=== PATIENT | male | born 1990 | race Caucasian/White ===

== ENCOUNTER 2019-12-10 09:32 | Emergency (ER) | payer BC, OTHER ==
[~2019-12-10] VITALS: Ht 172.7 cm; Wt 68.9 kg
[2019-12-10] MEDS ORDERED: ASPirin 81 mg TAB PO ONE (09:45)
[2019-12-10] MEDS ORDERED: SODIUM CHLORIDE 0.9% 1,000 ML IV ONE ×2 (09:50)
[2019-12-10 10:20] LABS: Basophils # (auto) 0 uL; Basophils % (auto) 0.2 % (0.0-2.0); Eosinophils # (auto) 0 uL; Hematocrit 48.5 % (41.0-53.0); Hemoglobin 16.9 g/dL (13.5-17.5); Lymphocytes # (auto) 0.5 uL; Lymphocytes % (auto) 8.6 % (10.0-50.0); Mean Corpuscular Hemoglobin 32.5 pg (28.0-32.0); Mean Corpuscular Hgb Conc. 34.9 g/dL (32.0-36.0); Monocytes # (auto) 0.6 uL; Monocytes % (auto) 9.2 % (0.0-12.0); Neutrophils # (auto) 5.1 uL; Nucleated Red Blood Cells % 0.1 %; Platelet Count (auto) 141 10^3/uL (140-450); Red Blood Cells 5.22 10^6/uL (4.5-5.90); White Blood Cell 6.2 10^3/uL (4.4-10.8)
[2019-12-10 10:44] LABS: Albumin 3.4 g/dL (3.4-5.0); Anion Gap 7 (5-15); Blood Urea Nitrogen 8 mg/dL (7-18); Calcium 8.6 mg/dL (8.5-10.1); Carbon Dioxide 23 mmol/L (21-32); Chloride 98 mmol/L (98-107); Glucose 105 mg/dL (74-106); Potassium 3.8 mmol/L (3.5-5.1); Sodium 128 mmol/L (136-145)
[2019-12-10 10:52] LABS: Alanine Aminotransferase 43 U/L (16-61); Alkaline Phosphatase 59 U/L (45-117); Aspartate Aminotransferase 55 U/L (15-37); BUN/Creatinine Ratio 8.5; Bilirubin, Total 0.4 mg/dL (0.2-1.0); GFR African American 123 mL/min; GFR Non-African American 102 mL/min; Total Protein 7.2 g/dL (6.4-8.2)
[2019-12-10 11:44] VITALS: BP 132/77
[2019-12-10 12:58] LABS: Urine Bacteria NONE SEEN /hpf (None Seen); Urine Blood Negative /uL (Negative); Urine Specific Gravity 1.006 (1.001-1.035); Urine WBC 1 /hpf (0 - 3)
== END 2019-12-10 12:58 | disposition home or self-care (01) ==
LOC: ER 09:32
DX: R07.89 Other chest pain (principal); J06.9 Acute upper respiratory infection, unspecified; E86.0 Dehydration; F17.210 Nicotine dependence, cigarettes, uncomplicated
CPT/HCPCS: 36415; 71045; 80053; 81001; 84484; 85025; 93005; 96360; 96361; 99285; J7030

== ENCOUNTER 2022-01-23 09:48 | Emergency (ER) | payer BC, MEDICAID ==
[~2022-01-23] VITALS: Ht 175.3 cm; Wt 75.3 kg
[2022-01-23 10:15] VITALS: BP 137/92
[2022-01-23 10:51] LABS: Basophils # (auto) 0.1 10 ^3/uL (0-0.2); Basophils % (auto) 1.1 % (0.0-2.0); Eosinophils # (auto) 0.1 10 ^3/uL (0-0.8); Eosinophils % (auto) 1.2 % (0.0-7.0); Hematocrit 48.3 % (41.0-53.0); Hemoglobin 16.8 g/dL (13.5-17.5); Lymphocytes # (auto) 1.2 10 ^3/uL (0.4-5.4); Mean Corpuscular Hemoglobin 33.2 pg (28.0-32.0); Mean Corpuscular Hgb Conc. 34.7 g/dL (32.0-36.0); Mean Corpuscular Volume 95.7 fL (80.0-100.0); Monocytes # (auto) 0.7 10 ^3/uL (0-1.3); Monocytes % (auto) 8.2 % (0.0-12.0); Neutrophils # (auto) 6.5 10 ^3/uL (1.6-8.6); Neutrophils % (auto) 75.5 % (37.0-80.0); Nucleated Red Blood Cells % 0.1 %; Red Blood Cells 5.05 10^6/uL (4.5-5.90); Red Cell Distribution Width 13.8 % (11.8-14.3); White Blood Cell 8.6 10^3/uL (4.4-10.8)
[2022-01-23 11:17] LABS: Anion Gap 5 (5-15); Blood Urea Nitrogen 7 mg/dL (7-18); Calcium 9.4 mg/dL (8.5-10.1); Carbon Dioxide 27 mmol/L (21-32); Chloride 105 mmol/L (98-107); Glucose 107 mg/dL (74-106); Potassium 4.4 mmol/L (3.5-5.1); Sodium 137 mmol/L (136-145)
[2022-01-23 11:24] LABS: Alanine Aminotransferase 108 U/L (16-61); Alkaline Phosphatase 66 U/L (45-117); Aspartate Aminotransferase 63 U/L (15-37); BUN/Creatinine Ratio 7.2; Bilirubin, Total 0.6 mg/dL (0.2-1.0); GFR African American 117 mL/min; GFR Non-African American 97 mL/min; Total Protein 7.9 g/dL (6.4-8.2)
[2022-01-23] MEDS ORDERED: PERCOT PO (17:14)
[2022-01-23] MEDS ORDERED: IBUP200C14 PO (17:14)
[2022-01-23] MEDS ORDERED: ONDA-144 PO (17:14)
== END 2022-01-23 18:21 | disposition home or self-care (01) ==
LOC: ER 09:48
DX: R07.89 Other chest pain (principal); F17.210 Nicotine dependence, cigarettes, uncomplicated
CPT/HCPCS: 36415; 71045; 72125; 80053; 84484; 85025; 93005

== ENCOUNTER 2022-08-18 18:23 | Emergency (ER) | payer MEDICAID ==
[~2022-08-18] VITALS: Ht 175.3 cm; Wt 74.9 kg
[~2022-08-18 18:23] MED LIST: IBUP200C14 PO; ONDA-144 PO; PERCOT PO
[2022-08-18] MEDS ORDERED: ASPirin 81 mg TAB PO ONE (19:00)
[2022-08-18 19:46] LABS: Basophils # (auto) 0 10 ^3/uL (0-0.2); Eosinophils # (auto) 0.1 10 ^3/uL (0-0.8); Lymphocytes # (auto) 1.8 10 ^3/uL (0.4-5.4); Monocytes # (auto) 0.8 10 ^3/uL (0-1.3); Red Cell Distribution Width 13.9 % (11.8-14.3); White Blood Cell 7.2 10^3/uL (4.4-10.8)
[2022-08-18 19:48] LABS: Basophils % (auto) 0.5 % (0.0-2.0); Eosinophils % (auto) 1.4 % (0.0-7.0); Hematocrit 52.7 % (41.0-53.0); Hemoglobin 17.5 g/dL (13.5-17.5); Lymphocytes % (auto) 24.7 % (10.0-50.0); Mean Corpuscular Hemoglobin 31.8 pg (28.0-32.0); Mean Corpuscular Hgb Conc. 33.2 g/dL (32.0-36.0); Mean Corpuscular Volume 95.8 fL (80.0-100.0); Neutrophils # (auto) 4.5 10 ^3/uL (1.6-8.6); Neutrophils % (auto) 62.4 % (37.0-80.0); Nucleated Red Blood Cells % 0.1 %
[2022-08-18 20:26] LABS: Albumin 3.9 g/dL (3.4-5.0); Calcium 8.6 mg/dL (8.5-10.1)
[2022-08-18 20:28] LABS: BUN/Creatinine Ratio 4.3
[2022-08-18 20:30] LABS: Bilirubin, Total 0.5 mg/dL (0.2-1.0); Total Protein 7.3 g/dL (6.4-8.2)
[2022-08-18] MEDS ORDERED: ACET325T82 PO (21:53)
[2022-08-18 23:15] VITALS: BP 120/84
== END 2022-08-18 23:22 | disposition home or self-care (01) ==
LOC: ER 18:24
DX: R07.89 Other chest pain (principal); F17.210 Nicotine dependence, cigarettes, uncomplicated; Z79.1 Long term (current) use of non-steroidal anti-inflammatories (NSAID); Z79.899 Other long term (current) drug therapy
CPT/HCPCS: 36415; 71045; 80053; 80307; 83880; 84484; 85025; 85379; 93005

== ENCOUNTER 2025-05-24 11:37 | Inpatient (IN) | payer MEDICAID ==
[~2025-05-24] VITALS: Ht 177.8 cm; Wt 73.5 kg
[~2025-05-24 11:37] MED LIST changes: +ACET325T82 PO
--- NOTE | 2025-05-24 11:43 | ECG ---
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
--- NOTE | 2025-05-24 12:01 | ED.PDOC ---
HPI Comments 34 y/o M, with PMHx of MVP presents to the ED for CC of chest pain. Patient states, he began to experience sudden onset left sided chest pain that radiates to his right arm while at work today (05/24/25). Patient reports, pain to be causing his right arm and fingertips to go numb. Patient denies palpitations, shortness of breath, abdominal pain, headache, dizziness, nausea, or vomiting. No other associated symptoms, modifiers, recent injuries or sick contacts present at this time. Chief Complaint: Chest Pain Time Seen by MD: 11:50 Primary Care Provider: Unknown name Reviewed Notes: Nurses Notes, Medications, Allergies Allergies: Coded Allergies: NO KNOWN ALLERGIES (Unverified , 12/10/19) Home Meds Active Scripts Acetaminophen (Apap) 325 Mg Tab, 500 MG PO QID PRN for 10 Days, #62 TAB Prov:KRYSTAL PARDO DO 08/18/22 Ibuprofen (Advil) 200 Mg Cap, 200 MG PO BID for 10 Days, #20 CAP Prov:ADAM GUILLEN MD 01/23/22 Ondansetron (Zofran) 4 Mg Tab, 4 MG PO BID for 7 Days, #14 MG Prov:ADAM GUILLEN MD 01/23/22 Oxycodone W/ Acetaminophen (Percocet 5/325MG) 1 Tab Tb, 1 TAB PO BID for 7 Days, #14 TAB Prov:ADAM GUILLEN MD 01/23/22 Information Source: Patient Mode of Arrival: Ambulatory Severity: Moderate Timing: Minutes Duration: Since onset Prehospital treatment: None Location: Chest (L) Radiation: Arm (R) Onset: At Rest Cardiac Risk Factors: Smoker PE Risk Factors: None History of: None Modifying Factors: Nothing Associated Signs and Symptoms: None Past Medical History Past Medical History (Other): MVP Surgical History: Denies all surgeries Surgical History (Other): right hand, bilateral knees Family History Family History: Reviewed,noncontributory to illness Social History Smoker: Cigarettes Alcohol: Denies ETOH Use Drugs: Denies Drug Use Lives In: Home Constitutional: denies: chills, diaphoresis, fatigue, fever, malaise, sweats, weakness, others EENTM: denies: blurred vision, double vision, ear bleeding, ear discharge, ear drainage, ear pain, ear ringing, eye pain, eye redness, hearing loss, mouth flo n, mouth swelling, nasal discharge, nose bleeding, nose congestion, nose pain, photophobia, tearing, throat pain, throat swelling, voice changes, others Respiratory: denies: cough, hemoptysis, orthopnea, SOB at rest, shortness of breath, SOB with excertion, stridor, wheezing, others Cardiovascular: reports: chest pain; denies: dizzy spells, diaphoresis, Dyspnea on exertion, edema, irregular heart beat, left arm pain, lightheadedness, palpitations, PND, syncope, others Gastrointestinal: denies: abdomen distended, abdominal pain, blood streaked bowels, constipated, diarrhea, dysphagia, difficulty swallowing, hematemesis, melena, nausea, poor appetite, poor fluid intake, rectal bleeding, rectal pain, vomiting, others Genitourinary: denies: burning, dysuria, flank pain, frequency, hematuria, incontinence, penile discharge, penile sore, pain, testicle pain, testicle swelling, urgency, others Neurological: denies: dizziness, fainting, headache, left sided numbness, left sided weakness, numbness, paresthesia, pre-existing deficit, right sided numbness, right sided weakness, seizure, speech problems, tingling, tremors, weakness, others Musculoskeletal: reports: others (right arm numbness); denies: back pain, gout, joint pain, joint swelling, muscle pain, muscle stiffness, neck pain Integumetry: denies: bruises, change in color, change in hair/nails, dryness, laceration, lesions, lumps, rash, wounds, others Allergic/Immunocompromised: denies: Difficulty Healing, Frequent Infections, Hives, Itching, others Hematologic/Lymphatic: denies: anemia, blood clots, easy bleeding, easy bruising, swollen glands, others Endocrine: denies: excessive hunger, excessive sweating, excessive thirst, excessive urination, flushing, intolerance to cold, intolerance to heat, unexplained weight gain, unexplained weight loss, others Psychiatric: denies: anxiety, bipolar disorder, depression, hopeless, panic disorder, schizophrenia, sleepless, suicidal, others All Other Systems: Reviewed and Negative Physical Exam General Appearance: Moderate Distress, Normal HEENT: Normal ENT Inspection, Pharynx Normal Neck: Full Range of Motion, Non-Tender, Normal, Normal Inspection Respiratory: Chest Non-Tender, Lungs Clear, No Accessory Muscle Use, No Respiratory Distress, Normal Breath Sounds Cardiovascular: No Edema, No Murmur, No Gallop, Normal Peripheral Pulses, Regular Rate/Rhythm Breast Exam: Deferred Gastrointestinal: No Organomegaly, Non Tender, No Pulsatile Mass, Normal Bowel Sounds, Soft Genitalia: Deferred Pelvic: Deferred Rectal: Deferred Extremities: No calf tenderness, Normal capillary refill, Normal inspection, Normal range of motion, Non-tender, No pedal edema Musculoskeletal : Apperance: Normal Neurologic: Alert, co founder II-XII nml as Tested, No Motor Deficits, Normal Affect, Normal Mood, No Sensory Deficits Cerebellar Function: Normal Reflexes: Normal Skin: Dry, Normal Color, Warm Lymphatic: No Adenopathy Was a procedure done? Was a procedure done?: No CP Differential Dx Differential Diagnosis: Hypoxia, MAT, ME, PAC's Differential Diagnosis: HTN Essential, HTN Accelerated Differential Diagnosis: Angina, Chest Wall Pain, Costochondritis X-Ray, Labs, Meds, VS Vital Signs Date Time Temp Pulse Resp B/P (MAP) Pulse Ox O2 Delivery O2 Flow Rate FiO2 05/24/25 14:07 100 17 97 Room Air 05/24/25 14:07 98.7 100 16 149/87 (107) 97 98.7 05/24/25 12:56 18 98 Room Air* 0 21 05/24/25 12:42 95 05/24/25 11:57 98.4 92 16 143/92 (109) 98 98.4 05/24/25 11:42 90 Lab Test 05/24/25 13:03 05/24/25 12:02 Range/Units Troponin I High Sensitivity < 3 L < 3 L </=54 ng/L White Blood Count 9.1 4.4-10.8 10^3/uL Red Blood Count 5.01 4.5-5.90 10^6/uL Hemoglobin 16.5 13.5-17.5 g/dL Hematocrit 46.8 41.0-53.0 % Mean Corpuscular Volume 93.3 80.0-100.0 fL Mean Corpuscular Hemoglobin 32.9 H 28.0-32.0 pg Mean Corpuscular Hemoglobin Concent 35.3 32.0-36.0 g/dL Red Cell Distribution Width 13.2 11.8-14.3 % Platelet Count 291 140-450 10^3/uL Mean Platelet Volume 6.1 L 6.9-10.8 fL Neutrophils (%) (Auto) 78.6 37.0-80.0 % Lymphocytes (%) (Auto) 13.1 10.0-50.0 % Monocytes (%) (Auto) 7.5 0.0-12.0 % Eosinophils (%) (Auto) 0.4 0.0-7.0 % Basophils (%) (Auto) 0.4 0.0-2.0 % Neutrophils # (Auto) 7.2 1.6-8.6 10 ^3/uL Lymphocytes # (Auto) 1.2 0.4-5.4 10 ^3/uL Monocytes # (Auto) 0.7 0-1.3 10 ^3/uL Eosinophils # (Auto) 0 0-0.8 10 ^3/uL Basophils # (Auto) 0 0-0.2 10 ^3/uL Nucleated Red Blood Cells 0.1 % Sodium Level 134 L 136-145 mmol/L Potassium Level 3.9 3.5-5.1 mmol/L Chloride Level 101 98-107 mmol/L Carbon Dioxide Level 24 20-31 mmol/L Anion Gap 9 5-15 Blood Urea Nitrogen 6 L 9-23 mg/dL Creatinine 0.81 0.700-1.30 mg/dL Glomerular Filtration Rate Calc 119 >90 mL/min BUN/Creatinine Ratio 7.4 L 10.0-20.0 Serum Glucose 110 H 74-106 mg/dL Calcium Level 10.2 8.7-10.4 mg/dL [place] [id number] Ph: [phone] DIAGNOSTIC IMAGING Diagnostic Imaging Report : [id number] Signed PATIENT: RICK GARCIA ACCT: [id number] UNIT: [id number] : 1990 LOC: ER ROOM / BED: / AGE / SEX: 34 / M ADM STATUS: REG ER SERVICE 1149 ORDERING PHYSICIAN: PALLAVI DOZIER MD PROCEDURE(s): CXRP - CHEST PORTABLE REASON: chest pain ORDER NUMBER(s): [id number], ACCESSION NUMBER(s): [id number] CHEST PORTABLE, HISTORY: chest pain COMPARISON: EKG on DOS: 08/18/22, CXRP on DOS: 08/18/22, CXRP on DOS: 01/23/22 EKG on DOS: 08/18/22, CXRP on DOS: 08/18/22, CXRP on DOS: 01/23/22 TECHNICAL DATA: 1 view of the chest was obtained. FINDINGS: Lines and tubes: None Cardiomediastinal silhouette: normal Pulmonary vasculature: normal Lung expansion: normal Lung airspace: normal Lung interstitium: normal Pleura: normal Pneumothorax: no Bones: Unremarkable Other: no IMPRESSION: No acute intrathoracic abnormality. ATED BY: WARNER LINDA MD DICTATED DATE/TIME: 05/24/251210 SIGNED BY: WARNER LINDA MD SIGNED DATE/TIME: 05/24/251210 CC: Time of 1ST Reevaluation: 12:20 Reevaluation 1ST: Unchanged Patient Education/Counseling: Diagnosis, Treatment Family Education/Counseling: No Family Present SEPSIS Sepsis Screen Physician Orders Chest Portable (05/24/25 11:49) Electrocardigram (05/24/25 11:49) Electrocardigram (05/24/25 12:49) Electrocardigram (05/24/25 14:49) Vital Signs Date Time Temp Pulse Resp B/P (MAP) Pulse Ox O2 Delivery O2 Flow Rate FiO2 05/24/25 14:07 100 17 97 Room Air 05/24/25 14:07 98.7 100 16 149/87 (107) 97 98.7 05/24/25 12:56 18 98 Room Air* 0 21 05/24/25 12:42 95 05/24/25 11:57 98.4 92 16 143/92 (109) 98 98.4 05/24/25 11:42 90 Laboratory Tests Test 05/24/25 12:02 White Blood Count 9.1 10^3/uL (4.4-10.8) Departure 1 Departure Time of Disposition: 16:20 (Patient presented with chest pain that was concerning for possible STEMI, ACS, PE, Pneumonia, Muscle Strain, COPD, Dissecti on. Data: 1. I ordered and reviewed the result of at least 3 labs including a CBC, BMP, and Troponin. 2. I independently interpreted the following tests: EKG which shows sinus arrhythmia and Chest X-ray which shows benign chest.Risk:This patient has a high risk of morbidity due to further diagnostic testing or treatment and may suffer from an acute cardiac or respiratory disorder. Workup reveals concern for ACS and patient should be admitted for further workup and possible expert consultation. ) Impression: Primary Impression: Acute chest pain Additional Impression: Paresthesias Disposition: ADMITTED INPATIENT Admit to: Med Surg Condition: Serious Critical Care Note Critical Care Time?: Yes Critical care comment: Acute chest pain Authorized and Performed by: Pallavi Dozier MD Total critical care time: Approximately 38 minutes Due to a high probability of clinically significant, life threatening deterioration, the patient required my highest level of preparedness to intervene emergently and I personally spent this critical care time directly and personally managing the patient. This critical care time included obtaining a history; examining the patient; pulse oximetry; ordering and review of studies; arranging urgent treatment with development of a management plan; evaluation of patient's response to treatment; frequent reassessment; and, discussions with other providers. This critical care time was performed to assess and manage the high probability of imminent, life-threatening deterioration that could result in multi-organ failure. It was exclusive of separately billable procedures and treating other patients and teaching time. Please see my other sections and the rest of the note for further information on patient assessment and treatment. Stability Stability form required: No Heart Score Heart Score: Heart Score Response (Comments) Value History Highly Suspicious 2 EKG Repolarization Disturb 1 Age <45 0 Risk Factors No known risk factors 0 Troponin Normal limit 0 Total 3 I personally scribed for PALLAVI DOZIER MD ([email or web address]) on 05/24/25 at 12:01. Electronically submitted by Blank Corona ([employer]). I personally scribed for PALLAVI DOZIER MD ([email or web address]) on 05/24/25 at 12:02. Electronically submitted by Blank Corona ([employer]). I personally scribed for PALLAVI DOZIER MD ([email or web address]) on 05/24/25 at 12:34. Electronically submitted by Blank Corona ([employer]). I personally scribed for PALLAVI DOZIER MD ([email or web address]) on 05/24/25 at 13:39. Electronically submitted by Blank Corona ([email or web address]). PALLAVI DOZIER MD May 24, 2025 12:01
--- NOTE | 2025-05-24 12:13 | DVH ---
XY CHEST PORTABLE, HISTORY: chest pain COMPARISON: EKG on DOS: 08/18/22, CXRP on DOS: 08/18/22, CXRP on DOS: 01/23/22 EKG on DOS: 08/18/22, CXRP on DOS: 08/18/22, CXRP on DOS: 01/23/22 TECHNICAL DATA: 1 view of the chest was obtained. FINDINGS: Lines and tubes: None Cardiomediastinal silhouette: normal Pulmonary vasculature: normal Lung expansion: normal Lung airspace: normal Lung interstitium: normal Pleura: normal Pneumothorax: no Bones: Unremarkable Other: no IMPRESSION: No acute intrathoracic abnormality.
[2025-05-24 12:15] LABS: Hematocrit 46.8 % (41.0-53.0); Hemoglobin 16.5 g/dL (13.5-17.5); Mean Corpuscular Hemoglobin 32.9 pg (28.0-32.0); Mean Corpuscular Volume 93.3 fL (80.0-100.0); Nucleated Red Blood Cells % 0.1 %
[2025-05-24 12:28] LABS: Chloride 101 mmol/L (98-107); Potassium 3.9 mmol/L (3.5-5.1)
[2025-05-24 12:29] LABS: Anion Gap 9 (5-15); Calcium 10.2 mg/dL (8.7-10.4); Carbon Dioxide 24 mmol/L (20-31); Sodium 134 mmol/L (136-145)
[2025-05-24 12:34] LABS: BUN/Creatinine Ratio 7.4 (10.0-20.0)
[2025-05-24 12:35] LABS: Blood Urea Nitrogen 6 mg/dL (9-23); Glucose 110 mg/dL (74-106)
[2025-05-24 12:56] VITALS: RESP 18; O2SAT 98
[2025-05-24] MEDS ORDERED: ACETAMINOPHEN 325 MG TAB PO PRN (19:15)
[2025-05-24] MEDS ORDERED: NITROGLYCERIN 0.4 MG SL TAB SL PRN (19:15)
[2025-05-24] MEDS ORDERED: MORPHINE SULFATE INJ 2 MG/ml SYRG IV PRN (19:15)
[2025-05-24] MEDS ORDERED: ONDANSETRON HCL 4 MG/2 ML VIAL IV PRN (19:15)
[2025-05-24 22:00] VITALS: BP 160/87; PULSE 89; RESP 18; TEMP 98.1; O2SAT 97
--- NOTE | 2025-05-24 22:11 | DVHHP2 ---
History of Present Illness Reason for Visit: Chest pain History of Present Illness 34-year-old male presents for evaluation of chest pain. Patient endorses a one day history of developing left-sided sharp chest pain followed by dizziness and right-sided arm numbness. Currently denies any of the previous symptoms. He reports having a history of mitral valve prolapse. 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 Past Medical History Mitral valve prolapse Past Surgical History Right hand, knee surgery Family History Noncontributory Smoke: <1 pack per day ALCOHOL: none Drugs: None Lives: with Family Review of Systems Review of Systems Review of systems are currently negative otherwise addressed in HPI. Allergies: Coded Allergies: NO KNOWN ALLERGIES (Unverified , 12/10/19) Medications Current Medications Medications Dose Ordered Sig/Awa Route Start Time Stop Time Status Last Admin Dose Admin Aspirin 81 mg DAILY PO 05/25/25 10:00 Atorvastatin Calcium 10 mg HS PO 05/24/25 22:00 Ondansetron HCl 4 mg Q4HP PRN IV 05/24/25 19:15 Acetaminophen 650 mg Q6HP PRN PO 05/24/25 19:15 Nitroglycerin 0.4 mg Q5MINP PRN SL 05/24/25 19:15 Morphine Sulfate 2 mg Q30M PRN IV 05/24/25 19:15 Exam Vital Signs Vital Signs Date Time Temp Pulse Resp B/P (MAP) Pulse Ox O2 Delivery O2 Flow Rate FiO2 05/24/25 19:00 98.7 90 16 133/89 (104) 98 98.7 05/24/25 14:07 Room Air 05/24/25 12:56 0 21 Exam Gen: 34-year-old male in no apparent distress. Skin: Warm, dry, normal color and texture, no rash. HEENT: Normocephalic atraumatic, mucous membranes moist and pink. Neck: Cervical and supraclavicular nodes normal without enlargement, trachea is midline, thyroid gland is normal without masses. Pulmonary: Clear to auscultation and percussion bilaterally. Cardiac: Regular rate and rhythm. No murmur Abdomen: Soft, nontender, nondistended, bowel sounds present all 4 quadrants, no guarding, no rigidity, no organomegaly. Extremities: No cyanosis, clubbing, no edema Neuro: Cranial nerves II through XII grossly intact, normal affect and speech, no focal motor deficits. Labs/Xrays ORDERING PHYSICIAN: PALLAVI ALVARADO MD PROCEDURE(s): CXRP - CHEST PORTABLE REASON: chest pain ORDER NUMBER(s): [id number], ACCESSION NUMBER(s): [id number] XY CHEST PORTABLE, HISTORY: chest pain COMPARISON: EKG on DOS: 08/18/22, CXRP on DOS: 08/18/22, CXRP on DOS: 01/23/22 EKG on DOS: 08/18/22, CXRP on DOS: 08/18/22, CXRP on DOS: 01/23/22 TECHNICAL DATA: 1 view of the chest was obtained. FINDINGS: Lines and tubes: None Cardiomediastinal silhouette: normal Pulmonary vasculature: normal Lung expansion: normal Lung airspace: normal Lung interstitium: normal Pleura: normal Pneumothorax: no Bones: Unremarkable Other: no IMPRESSION: No acute intrathoracic abnormality. Labs Test 05/24/25 13:03 05/24/25 12:02 Range/Units Troponin I High Sensitivity < 3 L </=54 ng/L White Blood Count 9.1 4.4-10.8 10^3/uL Red Blood Count 5.01 4.5-5.90 10^6/uL Hemoglobin 16.5 13.5-17.5 g/dL Hematocrit 46.8 41.0-53.0 % Mean Corpuscular Volume 93.3 80.0-100.0 fL Mean Corpuscular Hemoglobin 32.9 H 28.0-32.0 pg Mean Corpuscular Hemoglobin Concent 35.3 32.0-36.0 g/dL Red Cell Distribution Width 13.2 11.8-14.3 % Platelet Count 291 140-450 10^3/uL Mean Platelet Volume 6.1 L 6.9-10.8 fL Neutrophils (%) (Auto) 78.6 37.0-80.0 % Lymphocytes (%) (Auto) 13.1 10.0-50.0 % Monocytes (%) (Auto) 7.5 0.0-12.0 % Eosinophils (%) (Auto) 0.4 0.0-7.0 % Basophils (%) (Auto) 0.4 0.0-2.0 % Neutrophils # (Auto) 7.2 1.6-8.6 10 ^3/uL Lymphocytes # (Auto) 1.2 0.4-5.4 10 ^3/uL Monocytes # (Auto) 0.7 0-1.3 10 ^3/uL Eosinophils # (Auto) 0 0-0.8 10 ^3/uL Basophils # (Auto) 0 0-0.2 10 ^3/uL Nucleated Red Blood Cells 0.1 % Sodium Level 134 L 136-145 mmol/L Potassium Level 3.9 3.5-5.1 mmol/L Chloride Level 101 98-107 mmol/L Carbon Dioxide Level 24 20-31 mmol/L Anion Gap 9 5-15 Blood Urea Nitrogen 6 L 9-23 mg/dL Creatinine 0.81 0.700-1.30 mg/dL Glomerular Filtration Rate Calc 119 >90 mL/min BUN/Creatinine Ratio 7.4 L 10.0-20.0 Serum Glucose 110 H 74-106 mg/dL Calcium Level 10.2 8.7-10.4 mg/dL SEPSIS Sepsis Screen Date sepsis recognized/suspect: May 24, 2025 Time Sepsis recognized/suspect: 1144 Recent Procedure: No On Antibiotic Therapy: No Respiratory Rate >20: No Heart Rate >90: Yes Temp<36 C (96.8 F) or >38.3 C: No SBP <90 or MAP <65 mmHG: No New Acute Mental Status Change: No Is the patient on CPAP, BIPAP,: No Physician Orders Aspirin Tablet (05/25/25 10:00) Atorvastatin (Lipitor) (05/24/25 22:00) Basic Metabolic Panel (05/25/25 04:00) Admit (05/24/25 19:02) Ondansetron Hcl (Zofran) (05/24/25 19:15) Cardiac Diet-2gna,Lofat,Lochol (05/25/25 Breakfast) Echo 2d Mode Cardiac Dop (05/24/25 19:02) Condition: Fair (05/24/25 19:02) Acetaminophen Tablet (Tylenol Tablet) (05/24/25 19:15) Bedrest With Bathroom Privileg (05/24/25 19:02) Nitroglycerin Sublingual (Ntrostat Subli (05/24/25 19:15) Morphine Sulfate Injection (05/24/25 19:15) Stat Ekg For Chest Pain (05/24/25 19:02) Notify Md Of Changes From Base (05/24/25 19:02) 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 (05/24/25 19:02) Emergency Dysrhythmia Protocol (05/24/25 19:02) Rhythm Strips Once Every Shift (05/24/25 19:02) Oxygen By Nasal Cannula (05/24/25 19:02) Vital Signs Date Time Temp Pulse Resp B/P (MAP) Pulse Ox O2 Delivery O2 Flow Rate FiO2 05/24/25 19:00 98.7 90 16 133/89 (104) 98 98.7 05/24/25 16:30 98.6 92 20 135/79 (97) 97 98.6 Laboratory Tests Test 05/24/25 12:02 White Blood Count 9.1 10^3/uL (4.4-10.8) Assessment/Plan Assessment/Plan Assessment Chest pain rule out ACS History of mitral valve prolapse Plan Admit the patient to telemetry to the hospitalist Audiogram pending Continue treatment per orders. Plan discussed with: Patient My Orders Orders - LAURIE WATKINS Procedure Category Date Status Time Aspirin Tablet PHA 05/25/25 In Process 10:00 Atorvastatin (Lipitor) PHA 05/24/25 In Process 22:00 Basic Metabolic Panel LAB 05/25/25 Verified 04:00 Admit ADMIT 05/24/25 Transmitted 19:02 Ondansetron Hcl PHA 05/24/25 In Process (Zofran) 19:15 Cardiac DIET 05/25/25 Transmitted Diet-2gna,Lofat,Lochol Breakfast Echo 2d Mode Cardiac US 05/24/25 Logged DOP 19:02 Condition: Fair DAVID 05/24/25 In Process 19:02 Acetaminophen Tablet PHA 05/24/25 In Process (Tylenol Tablet) 19:15 Bedrest With Bathroom DAVID 05/24/25 In Process Privileg 19:02 Nitroglycerin PHA 05/24/25 In Process Sublingual (Ntrostat 19:15 Morphine Sulfate PHA 05/24/25 In Process Injection 19:15 Stat Ekg For Chest DAVID 05/24/25 In Process Pain 19:02 Notify Md Of Changes DAVID 05/24/25 In Process From Base 19:02 Metal Washing Machine Operator For [facility] 05/24/25 In Process 24 Hours 19:02 Emergency Dysrhythmia [facility] 05/24/25 In Process Protocol 19:02 Rhythm Strips Once [facility] 05/24/25 In Process Every Shift 19:02 Oxygen By Nasal RT 05/24/25 Transmitted Cannula 19:02 Date of Service: May 24, 2025 Billing Provider: LAURIE WATKINS Common Visit Codes: [id number] INP/OBS CARE (HIGH) LAURIE WATKINS May 24, 2025 22:11
[2025-05-24 22:43] LABS: Triglycerides 126 mg/dL (< 150)
[2025-05-24 22:59] LABS: Cholesterol 318 mg/dL (< 200); HDL Cholesterol 98 mg/dL (40-59)
[2025-05-24] MEDS: ATORVASTATIN 20 MG TAB PO SCH (23:40)
[2025-05-25] VITALS (8 sets, daily range): BP systolic 144–158; BP diastolic 80–95; PULSE 82–104; RESP 16–20; TEMP 97.8–99.3; O2SAT 95–99
[2025-05-25 06:00] LABS: Anion Gap 6 (5-15); Carbon Dioxide 24 mmol/L (20-31); Potassium 4.3 mmol/L (3.5-5.1); Sodium 139 mmol/L (136-145)
[2025-05-25 06:01] LABS: Calcium 9.5 mg/dL (8.7-10.4)
[2025-05-25 06:06] LABS: BUN/Creatinine Ratio 8.2 (10.0-20.0); Glucose 79 mg/dL (74-106)
[2025-05-25 06:12] LABS: Blood Urea Nitrogen 6 mg/dL (9-23); Chloride 109 mmol/L (98-107)
--- NOTE | 2025-05-25 07:25 | ECG ---
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
--- NOTE | 2025-05-25 12:49 | DVHSR ---
APPROVED REPORT EXAM: Two-dimensional and M-mode echocardiogram with Doppler and color Doppler. INDICATION Chest Pain RISK FACTORS Height: 5'10, Weight: 171 DIMENSIONS LVDd4.2 (3.8-5.7cm)LA (2D)2.6 (1.9-4.0cm)Aortic Root3.2 (2.0-3.7cm) LVDs3.0 (2.5-4.0cm)LA (MM) (1.9-4.0cm)Aortic Cusp Exc1.9 (1.5-2.0cm) EF (%) 54.0 (55-70%)Rt. Atrium3.8 (1.9-4.0cm)Asc. Aorta cm IVSd0.8 (0.7-1.1cm)RV (D) (1.8-2.4cm) PWd1.0 (0.7-1.1cm) Mitral Valve MitralMitral Stenosis E wave0.60m/sMV Mean GR.mmHg A wave0.61m/sMV Peak GR.mmHg E/A ratio1.02D MVAcm2 DECEL [id number] 1/2 Timems Aortic Valve Aortic ValveAortic Stenosis V10.85m/Christofer Mean GR.3mmHg V21.18m/Christofer Peak GR.6mmHg LVOT Diameter2.1 (1.8-2.4cm)Doppler AVA2.49cm2 Pulmonic Valve V20.95m/s Conclusion lvef 60% normal rv function normal atria no severe valve abnormality noted
--- NOTE | 2025-05-25 13:13 | DVHPN2 ---
Subjective 34-year-old male comes with a chief complaint of chest pain, intermittent, sharp on the left side of his lower chest, sometimes it is pressure sensation Evaluation here was negative with troponins TSH is normal His lipid panel showed severe elevation in the LDL of 231 total cholesterol of 318 Chest x-ray is negative Changes from previous H/P or p: Changes Objective Vitals Vital Signs Date Time Temp Pulse Resp B/P (MAP) Pulse Ox O2 Delivery O2 Flow Rate FiO2 05/25/25 08:00 88 18 99 Room Air* 0 21 05/25/25 05:00 97.8 144/80 (101) 97.8 General Appearance: Alert, Oriented X3, Cooperative, No acute distress Lungs: Clear to auscultation, Normal air movement Cardiovascular: Regular rate, Normal S1, Normal S2, No murmurs Abdomen: Normal bowel sounds, Soft, No tenderness Extremities: No edema Medications Current Medications Medications Dose Ordered Sig/Awa Route Start Time Stop Time Status Last Admin Dose Admin Aspirin 81 mg DAILY PO 05/25/25 10:00 05/25/25 10:00 81 MG Atorvastatin Calcium 10 mg HS PO 05/24/25 22:00 05/24/25 23:40 10 MG Ondansetron HCl 4 mg Q4HP PRN IV 05/24/25 19:15 Acetaminophen 650 mg Q6HP PRN PO 05/24/25 19:15 Nitroglycerin 0.4 mg Q5MINP PRN SL 05/24/25 19:15 Morphine Sulfate 2 mg Q30M PRN IV 05/24/25 19:15 Laboratory Results Laboratory Tests 05/24/25 12:02 05/25/25 04:16 Chemistry Test 05/25/25 04:16 Calcium Level 9.5 mg/dL (8.7-10.4) Assessment/Plan Assessment/Plan Chest pain Mixed hyperlipidemia Tobacco smoking Mitral valve prolapse Plan Aspirin Lipitor Cardiology consult Echocardiogram I offered the patient tobacco smoking and a nicotine patch, he declined Full code Advance directives discussed for 18 minutes Plan discussed with: Patient My Orders Orders - TIN GONZALEZ MD Procedure Category Date Status Time * Cardiology Consult CONS 05/25/25 Transmitted 13:08 Date of Service: May 25, 2025 Billing Provider: TIN GONZALEZ MD Common Visit Codes: [id number] INP/OBS CARE(HIGH) Secondary Visit Codes: [id number] CARE PLAN 30 MINUTES TIN GONZALEZ MD May 25, 2025 13:13
--- NOTE | 2025-05-25 16:10 | DVHINCON2 ---
Date Seen: May 25, 2025 Referring Physician MD Nayla Reason for Consultation Chest pain History of Present Illness This is a 34-year-old male patient who presents to emergency room with chief complaint of chest pain and right-sided weakness. The patient reports that yesterday at approximately 10:30 a.m. while at work, he experienced these symptoms. He describes the chest pain as unprovoked, brief, sharp in nature, left-sided and nonradiating. Associated symptoms include complete right-sided weakness and lightheadedness. He decided to come to the emergency room for further evaluation. Initial twelve lead electrocardiogram reveals normal sinus rhythm without any significant ST segment changes. Troponin levels have been negative. Significant past medical history includes hypertension, dyslipidemia, mitral valve prolapse, tobacco use, and alcohol use. 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 He does report a nuclear stress test approximately one year ago in which he was told was normal. Past Medical History Past medical history reviewed. No other significant than mentioned above. Past Surgical History Meniscus repair Family History: Patient reports no known family medical history. Family History Family history reviewed. Social History Patient admits to daily vaping Patient has a 15 pack-year history, smokes approximately one pack per day Denies illicit drug use States he drinks approximately six beers every night Allergies: Coded Allergies: NO KNOWN ALLERGIES (Unverified , 12/10/19) Home Meds No Active Prescriptions or Reported Meds Home Meds Denies taking any prescribed medications Current Medications Current Medications Medications (Trade) Dose Ordered Sig/Awa Route PRN Reason Start Time Stop Time Status Last Admin Aspirin 81 mg DAILY PO 05/25/25 10:00 05/25/25 10:00 Atorvastatin Calcium (Lipitor) 10 mg HS PO 05/24/25 22:00 05/25/25 13:10 DC 05/24/25 23:40 Ondansetron HCl (Zofran) 4 mg Q4HP PRN IV NAUSEA / VOMITING 05/24/25 19:15 Acetaminophen (Tylenol Tablet) 650 mg Q6HP PRN PO PAIN SCALE 1-3 OR TEMP>100.4 05/24/25 19:15 Nitroglycerin (Ntrostat Sublingual) 0.4 mg Q5MINP PRN SL FOR CHEST PAIN 05/24/25 19:15 Morphine Sulfate 2 mg Q30M PRN IV FOR CHEST PAIN 05/24/25 19:15 Atorvastatin Calcium (Lipitor) 80 mg HS PO 05/25/25 22:00 Review of Systems Constitutional: No symptom reported Ears, Nose, & Throat: No symptom reported Eyes: No symptom reported Neurological: No symptoms reported Pulmonary/Respiratory: No symptoms reported Cardiovascular: Chest pain Gastrointestinal: No symptom reported Genitourinary: No symptom reported Musculoskeletal: Right-sided weakness Skin: No symptom reported Psychiatric: No symptom reported Endocrine: No symptom reported Hematologic/Lymphatic: No symptom reported Vital Signs Vital Signs Date Time Temp Pulse Resp B/P (MAP) Pulse Ox O2 Delivery O2 Flow Rate FiO2 05/25/25 13:00 99.3 82 18 158/94 (115) 98 99.3 05/25/25 08:00 Room Air* 0 21 Physical Exam General Appearance: Cooperative. Well-developed. Well-nourished. No acute distress. Head Exam: Normal inspection Neck Exam: Normal inspection. Pulmonary/Respiratory: Clear, bilateral breaths sounds. Cardiovascular/Chest: Regular rate and rhythm. Peripheral Pulses: 2+ Radial (R). 2+ Radial (L). 2+ Pedal (R). 2+ Pedal (L) Abdominal Exam: Normal bowel sounds. Ankle Exam: Negative ankle edema Lower extremities: Negative lower extremity edema Neuro/Mental Status: A/OX4, coherent. Thoughts/Psych: Normal thought pattern. Appropriate mood and affect. Good judgment and insight. Appearance: No acute distress. Skin Exam: Normal inspection. Normal color. Warm and dry. Labs/Diagnostic Data Labs Test 05/25/25 04:16 05/24/25 13:03 05/24/25 12:02 Range/Units Sodium Level 139 # 136-145 mmol/L Potassium Level 4.3 3.5-5.1 mmol/L Chloride Level 109 H 98-107 mmol/L Carbon Dioxide Level 24 20-31 mmol/L Anion Gap 6 5-15 Blood Urea Nitrogen 6 L 9-23 mg/dL Creatinine 0.73 0.700-1.30 mg/dL Glomerular Filtration Rate Calc 123 >90 mL/min BUN/Creatinine Ratio 8.2 L 10.0-20.0 Serum Glucose 79 74-106 mg/dL Calcium Level 9.5 8.7-10.4 mg/dL Troponin I High Sensitivity < 3 L </=54 ng/L White Blood Count 9.1 4.4-10.8 10^3/uL Red Blood Count 5.01 4.5-5.90 10^6/uL Hemoglobin 16.5 13.5-17.5 g/dL Hematocrit 46.8 41.0-53.0 % Mean Corpuscular Volume 93.3 80.0-100.0 fL Mean Corpuscular Hemoglobin 32.9 H 28.0-32.0 pg Mean Corpuscular Hemoglobin Concent 35.3 32.0-36.0 g/dL Red Cell Distribution Width 13.2 11.8-14.3 % Platelet Count 291 140-450 10^3/uL Mean Platelet Volume 6.1 L 6.9-10.8 fL Neutrophils (%) (Auto) 78.6 37.0-80.0 % Lymphocytes (%) (Auto) 13.1 10.0-50.0 % Monocytes (%) (Auto) 7.5 0.0-12.0 % Eosinophils (%) (Auto) 0.4 0.0-7.0 % Basophils (%) (Auto) 0.4 0.0-2.0 % Neutrophils # (Auto) 7.2 1.6-8.6 10 ^3/uL Lymphocytes # (Auto) 1.2 0.4-5.4 10 ^3/uL Monocytes # (Auto) 0.7 0-1.3 10 ^3/uL Eosinophils # (Auto) 0 0-0.8 10 ^3/uL Basophils # (Auto) 0 0-0.2 10 ^3/uL Nucleated Red Blood Cells 0.1 % Triglycerides Level 126 < 150 mg/dL Cholesterol Level 318 H < 200 mg/dL LDL Cholesterol 231 H < 100 mg/dL HDL Cholesterol 98 H 40-59 mg/dL Thyroid Stimulating Hormone (TSH) 0.81 0.55-4.78 uIU/mL Assessment Chest pain, rule out ACS Hypertension Dyslipidemia Tobacco use Alcohol use Plan/Recommendation We will continue with the following plan/recommendations (Dr. Lee): Case discussed with . A transthoracic echocardiogram reveals EF of 60% with no severe valve abnormalities. Given clinical presentation, negative troponin level, and unremarkable twelve lead electrocardiogram, doubt ACS. The patient also reports a stress test in the outpatient setting approximately one year ago which he states was negative. We will recommend for aggressive blood pressure control and initiation of lipid-lowering agent. Dietary and lifestyle changes were discussed in detail with the patient. There is no further inp atient cardiac workup indicated at this time. Thank you for allowing us to care for this patient. Please call with any questions or concerns. Critical care time spent: 44 minutes This medical document was created using an electronic medical record system with voice recognition software and computerized dictation system. Although this document has been carefully reviewed, there might still be some phonetic and typographical errors. Occasional wrong-word or ``sound-alike substitutions may have occurred due to the inherent limitations of voice recognition software. These areas are purely typographical due to imperfections of the software programs and do not reflect any compromise in the patient's medical care. Please read the chart carefully and recognize, using context, where these substitutions have occurred. Plan discussed with: Patient NYHA Physical activity limitations: NA Date of Service: May 25, 2025 Billing Provider: ARACELI CRUZ Cardiology Common Codes: 93466-VIVDNCY INP/OBS CARE (High) Cardiology Consultation Codes: 30419-YGVITBLAS CONSULT <45MIN ARACELI CRUZ May 25, 2025 16:10
[2025-05-25] MEDS: ATORVASTATIN 20 MG TAB PO SCH (21:17)
[2025-05-26 01:00] VITALS: BP 129/62; PULSE 88; RESP 20; TEMP 98.3; O2SAT 98
[2025-05-26 05:00] VITALS: BP 136/92; PULSE 78; RESP 20; TEMP 98.2; O2SAT 98
[2025-05-26 08:00] VITALS: PULSE 70
[2025-05-26 09:00] VITALS: BP 156/96; PULSE 92; RESP 18; TEMP 98.4; O2SAT 98
[2025-05-26] MEDS: CHLORTHALIDONE 25 MG TAB PO SCH (09:26)
[2025-05-26] MEDS ORDERED: CHLO25TA2 PO (11:53)
[2025-05-26] MEDS ORDERED: ATOR80TA PO (11:53)
[2025-05-26 13:00] VITALS: BP 137/83; PULSE 105; RESP 18; TEMP 98.2; O2SAT 98
--- NOTE | 2025-05-26 13:37 | DVHDS2 ---
Discharge Summary Date of Admission May 24, 2025 at 19:02 Date of Discharge: May 26, 2025 Labs/Diagnostic Data: Laboratory Results Test 05/25/25 04:16 05/24/25 13:03 05/24/25 12:02 Sodium Level 139 mmol/L (136-145) Potassium Level 4.3 mmol/L (3.5-5.1) Chloride Level 109 mmol/L (98-107) Carbon Dioxide Level 24 mmol/L (20-31) Anion Gap 6 (5-15) Blood Urea Nitrogen 6 mg/dL (9-23) Creatinine 0.73 mg/dL (0.700-1.30) Glomerular Filtration Rate Calc 123 mL/min (>90) BUN/Creatinine Ratio 8.2 (10.0-20.0) Serum Glucose 79 mg/dL (74-106) Calcium Level 9.5 mg/dL (8.7-10.4) Troponin I High Sensitivity < 3 ng/L (</=54) White Blood Count 9.1 10^3/uL (4.4-10.8) Red Blood Count 5.01 10^6/uL (4.5-5.90) Hemoglobin 16.5 g/dL (13.5-17.5) Hematocrit 46.8 % (41.0-53.0) Mean Corpuscular Volume 93.3 fL (80.0-100.0) Mean Corpuscular Hemoglobin 32.9 pg (28.0-32.0) Mean Corpuscular Hemoglobin Concent 35.3 g/dL (32.0-36.0) Red Cell Distribution Width 13.2 % (11.8-14.3) Platelet Count 291 10^3/uL (140-450) Mean Platelet Volume 6.1 fL (6.9-10.8) Neutrophils (%) (Auto) 78.6 % (37.0-80.0) Lymphocytes (%) (Auto) 13.1 % (10.0-50.0) Monocytes (%) (Auto) 7.5 % (0.0-12.0) Eosinophils (%) (Auto) 0.4 % (0.0-7.0) Basophils (%) (Auto) 0.4 % (0.0-2.0) Neutrophils # (Auto) 7.2 10 ^3/uL (1.6-8.6) Lymphocytes # (Auto) 1.2 10 ^3/uL (0.4-5.4) Monocytes # (Auto) 0.7 10 ^3/uL (0-1.3) Eosinophils # (Auto) 0 10 ^3/uL (0-0.8) Basophils # (Auto) 0 10 ^3/uL (0-0.2) Nucleated Red Blood Cells 0.1 % Triglycerides Level 126 mg/dL (< 150) Cholesterol Level 318 mg/dL (< 200) LDL Cholesterol 231 mg/dL (< 100) HDL Cholesterol 98 mg/dL (40-59) Thyroid Stimulating Hormone (TSH) 0.81 uIU/mL (0.55-4.78) Other Laboratory Tests 05/25/25 04:16 05/24/25 12:02 Brief Hx & Hospital Course: Final diagnoses: Musculoskeletal chest pain Uncontrolled HTN Mixed hyperlipidemia Tobacco smoking 34-year-old male who was admitted for chest pain was ruled out for myocardial infarction with negative troponins and normal echocardiogram and normal EKG Cardiology saw the patient recommended to control his hypertension and dyslipidemia We checked his cholesterol it was 318 with an LDL of 231 He was started on chlorthalidone for hypertension and Lipitor for the hyperlipidemia His chest pain is resolved Vital signs are better Discharged home on chlorthalidone and Lipitor We also counseled him about smoking cessation, weight loss and exercise, low-fat diet Follow up with the primary care physician as soon as possible Condition at Discharge: Stable Final Diagnosis/Problems List Musculoskeletal chest pain Uncontrolled HTN Mixed hyperlipidemia Discharge Disposition: Home SNF Discharge Will this Physician continue t: No Discharge Instruct/Medications Diet: Cardiac 2g Na,low cholest Diet comment: Low fat diet Activity: No Restrictions, As Tolerated Follow Up/Referral: PCP [facility] Medications: Lipitor 80 mg qhs Chlorthalidone 25 mg qd Scheduled Atorvastatin Calcium (Lipitor), 1 TAB PO DAILY Chlorthalidone (Chlorthalidone), 25 MG PO [email or web address] Discharge Statement: "Patient was advised to return to the ER or call 911 if any headaches, dizziness, shortness of breath, chest pain, abdominal pain, bleeding, fevers, or worsening of medical condition. Patient was counseled about treatment plan, medications, possible side effects, patientverbalized understanding. All questions were answered to the best of my ability. This discharge took greater then 30 minutes in planning, reviewing documentation, counseling the patient, and discussing with other team members." ASSESSMENT ASSESSMENT Assessment Musculoskeletal chest pain Uncontrolled HTN Mixed hyperlipidemia Date of Service: May 26, 2025 Billing Provider: TIN GONZALEZ MD Common Visit Codes: 55117-YLP/OBS DISCH DAY >30min TIN GONZALEZ MD May 26, 2025 13:37
== END 2025-05-26 14:05 | disposition home or self-care (01) | DRG 203 ==
LOC: ER 11:37 → OVERFLOW 19:02 → TELE-EAST 05-25 11:08
PROVIDERS: ADMIT Internal Medicine Geriatric Medicine; ATTEND Internal Medicine Geriatric Medicine
DX: R07.89 Other chest pain (principal); E78.2 Mixed hyperlipidemia; I10 Essential (primary) hypertension; F17.210 Nicotine dependence, cigarettes, uncomplicated; I34.1 Nonrheumatic mitral (valve) prolapse; F17.290 Nicotine dependence, other tobacco product, uncomplicated; Z79.1 Long term (current) use of non-steroidal anti-inflammatories (NSAID); Z71.6 Tobacco abuse counseling; Z79.899 Other long term (current) drug therapy
CPT/HCPCS: 36415; 71045; 80048; 80061; 84443; 84484; 85025; 93005; 93306; 99291; G0378